=== PATIENT | male | born 1950 | race Caucasian/White ===

== ENCOUNTER 2023-11-24 11:49 | Inpatient (IN) | payer OTHER ==
[2023-11-24] MEDS ORDERED: ACETAMINOPHEN INJECTION 100 ML IVPB ONE ×2 (14:02→20:59)
[2023-11-24] MEDS: ACETAMINOPHEN 1000 MG/100 ML BAG IVPB ONE ×2 (14:05→21:18)
[2023-11-24 14:23] LABS: BASO % 0.7 % (0-2.0); EOS % 1.8 % (0-4.5); HEMATOCRIT 39.9 % (35.4-49); HEMOGLOBIN 12.6 GM/dL (11.7-16.9); LYMPH % 10.8 % (8-40); MCH 28.9 pg (25.7-33.7); MCHC 31.5 g/dl (32.0-35.9); MEAN CELL VOLUME 91.8 fl (80-96); MEAN PLT VOLUME 7.5 fl (7.5-11.1); MONO % 5.6 % (3.8-10.2); NEUT % 81.1 % (42.8-82.8); PLATELET COUNT 264 10^3/uL (134-434); RBC 4.35 M/mm3 (4.00-5.60); RDW 15.9 % (11.9-15.9); WHITE BLOOD COUNT 7.9 K/mm3 (4.0-10.0)
[2023-11-24 14:34] LABS: INR 1.29 (0.83-1.09); PROTHROMBIN TIME (PATIENT) 14.9 SEC (9.7-13.0)
[2023-11-24 14:36] LABS: ACTIVATED PTT 30.4 SECONDS (25.2-36.5)
[2023-11-24 14:40] LABS: POTASSIUM 3.7 mmol/L (3.5-5.1)
[2023-11-24 14:41] LABS: CALCIUM 8.4 mg/dL (8.5-10.1)
[2023-11-24 14:42] LABS: ALBUMIN 3.2 g/dl (3.4-5.0); BLOOD UREA NITROGEN 10.4 mg/dL (7-18)
[2023-11-24 14:45] LABS: CREATININE 1.3 mg/dL (0.55-1.3)
[2023-11-24 14:47] LABS: BILIRUBIN,TOTAL 0.8 mg/dL (0.2-1)
[2023-11-24 14:48] LABS: TOT PROT 6.8 g/dl (6.4-8.2)
[2023-11-24 14:51] LABS: LACTIC ACID 3.4 mmol/L (0.4-2.0)
[2023-11-24 15:18] LABS: ERYTHROCYTE SEDIMENTATION RATE 38 mm/hr (0-20)
[2023-11-24] MEDS: MEROPENEM 1 GM in DEXTROSE 5%-WATER 100 ML IVPB ONE (17:13)
[2023-11-24] MEDS: MEROPENEM 1 GM in DEXTROSE 5%-WATER 100 ML IVPB SCH (17:13)
[2023-11-24] MEDS ORDERED: PIPERACILLIN/TAZOB 3.375 GM 3.375 GM/50 ML BAG IVPB ONE (18:07)
[2023-11-24] MEDS: PIPERACILLIN/TAZOB 3.375 GM 3.375 GM in DEXTROSE 5%-WATER - 50 ML IVPB SCH (18:14)
[2023-11-24] MEDS: INSULIN ASPART SLIDING SCALE (NOVOLOG) 1 VIAL SQ SCH (18:14)
[2023-11-24] MEDS ORDERED: LABETALOL HCL 100 MG TABLET (FP) ONE (20:57)
[2023-11-24] MEDS ORDERED: hydrALAZINE HCL 50 MG TABLET (FP) ONE (20:58)
[2023-11-24] MEDS ORDERED: ATORVASTATIN CA 10 MG TABLET (FP) ONE (20:58)
[2023-11-24] MEDS ORDERED: traZODone HCL 50 MG TABLET (FP) ONE (20:58)
[2023-11-24] MEDS ORDERED: LABETALOL HCL 200 MG TABLET (FP) ONE (20:58)
[2023-11-24] MEDS ORDERED: HEPARIN NA (PORCINE) 5,000 UNITS/ML 1ML VIAL ONE (20:59)
[2023-11-24] MEDS ORDERED: AMPICILLIN NA/SULBACTAM NA 3 GM in DEXTROSE 5%-WATER 100 ML IVPB SCH (21:00)
[2023-11-24] MEDS: LABETALOL HCL 200 MG TABLET (FP) PO SCH (21:18)
[2023-11-24] MEDS: ATORVASTATIN CA 10 MG TABLET (FP) PO SCH (21:18)
[2023-11-24] MEDS: traZODone HCL 50 MG TABLET (FP) PO SCH (21:18)
[2023-11-24] MEDS: HEPARIN NA (PORCINE) 5,000 UNITS/ML 1ML VIAL SQ SCH (21:18)
[2023-11-24] MEDS: hydrALAZINE HCL 50 MG TABLET (FP) PO SCH (21:18)
[2023-11-25] MEDS ORDERED: PIPERACILLIN/TAZOB 3.375 GM 3.375 GM/50 ML BAG IVPB ONE ×3 (02:10→17:55)
[2023-11-25] MEDS: traMADol HCL 50 MG TABLET PO ONE (02:54)
[2023-11-25] MEDS ORDERED: hydrALAZINE HCL 50 MG TABLET (FP) ONE ×2 (05:49→15:33)
[2023-11-25] MEDS ORDERED: FUROSEMIDE 40 MG TABLET (FP) ONE (05:49)
[2023-11-25] MEDS: FUROSEMIDE 40 MG TABLET (FP) PO SCH (05:55)
[2023-11-25 06:26] LABS: BASO % 0.8 % (0-2.0); EOS % 2.6 % (0-4.5); HEMATOCRIT 39.1 % (35.4-49); HEMOGLOBIN 12.5 GM/dL (11.7-16.9); LYMPH % 16.4 % (8-40); MCH 29.1 pg (25.7-33.7); MCHC 31.8 g/dl (32.0-35.9); MEAN CELL VOLUME 91.5 fl (80-96); MEAN PLT VOLUME 7.5 fl (7.5-11.1); MONO % 8.9 % (3.8-10.2); NEUT % 71.3 % (42.8-82.8); PLATELET COUNT 256 10^3/uL (134-434); RBC 4.28 M/mm3 (4.00-5.60); RDW 15.4 % (11.9-15.9); WHITE BLOOD COUNT 7.3 K/mm3 (4.0-10.0)
[2023-11-25 06:44] LABS: CALCIUM 8.1 mg/dL (8.5-10.1); POTASSIUM 3.4 mmol/L (3.5-5.1)
[2023-11-25 06:46] LABS: BLOOD UREA NITROGEN 12.6 mg/dL (7-18)
[2023-11-25 06:48] LABS: CREATININE 1.2 mg/dL (0.55-1.3)
[2023-11-25] MEDS ORDERED: SACUBITRIL/VALSARTAN 49 MG-51 MG TABLET ONE (09:04)
[2023-11-25] MEDS: SACUBITRIL/VALSARTAN 49 MG-51 MG TABLET PO SCH (09:55)
[2023-11-25] MEDS: LABETALOL HCL 200 MG, LABETALOL HCL 100 MG PO SCH (09:55)
[2023-11-25] MEDS ORDERED: POTASSIUM CHLORIDE ORAL LIQUID 20 MEQ/15 ML ONE (10:08)
[2023-11-25] MEDS ORDERED: FUROSEMIDE 40 MG/4 ML INJECTABLE VIAL ONE ×2 (10:08→14:30)
[2023-11-25] MEDS: FUROSEMIDE 40 MG/4 ML INJECTABLE VIAL IVPUSH SCH (10:16)
[2023-11-25] MEDS: POTASSIUM CHLORIDE ORAL LIQUID 20 MEQ/15 ML PO ONE (10:16)
[2023-11-25] MEDS: ALBUTEROL SO4 2.5/IPRATROPIUM 0.5 INH SOL 3 ML VIAL.NEB. NEB PRN (13:40)
[2023-11-25] MEDS ORDERED: ATORVASTATIN CA 10 MG TABLET (FP) ONE (22:50)
[2023-11-25] MEDS ORDERED: LABETALOL HCL 100 MG TABLET (FP) ONE (22:50)
[2023-11-25] MEDS ORDERED: LABETALOL HCL 200 MG TABLET (FP) ONE (22:50)
[2023-11-25] MEDS ORDERED: HEPARIN NA (PORCINE) 5,000 UNITS/ML 1ML VIAL ONE (22:51)
[2023-11-25] MEDS ORDERED: traZODone HCL 50 MG TABLET (FP) ONE (22:51)
[2023-11-26] MEDS ORDERED: PIPERACILLIN/TAZOB 3.375 GM 3.375 GM/50 ML BAG IVPB ONE ×3 (03:01→16:42)
[2023-11-26] MEDS: ACETAMINOPHEN 325 MG TABLET (FP) PO PRN (03:50)
[2023-11-26] MEDS ORDERED: hydrALAZINE HCL 50 MG TABLET (FP) ONE ×3 (06:23→21:51)
[2023-11-26] MEDS ORDERED: FUROSEMIDE 40 MG TABLET (FP) ONE (06:23)
[2023-11-26 08:10] LABS: BASO % 0.8 % (0-2.0); EOS % 3.9 % (0-4.5); HEMATOCRIT 40.6 % (35.4-49); HEMOGLOBIN 12.7 GM/dL (11.7-16.9); LYMPH % 15.9 % (8-40); MCH 28.6 pg (25.7-33.7); MCHC 31.3 g/dl (32.0-35.9); MEAN CELL VOLUME 91.5 fl (80-96); MEAN PLT VOLUME 7.4 fl (7.5-11.1); MONO % 7.4 % (3.8-10.2); PLATELET COUNT 273 10^3/uL (134-434); RBC 4.44 M/mm3 (4.00-5.60); RDW 15.7 % (11.9-15.9); WHITE BLOOD COUNT 7.8 K/mm3 (4.0-10.0)
[2023-11-26 08:23] LABS: POTASSIUM 3.2 mmol/L (3.5-5.1)
[2023-11-26 08:26] LABS: CALCIUM 8.1 mg/dL (8.5-10.1)
[2023-11-26 08:27] LABS: BLOOD UREA NITROGEN 13.7 mg/dL (7-18)
[2023-11-26 08:29] LABS: CREATININE 1.1 mg/dL (0.55-1.3)
[2023-11-26] MEDS ORDERED: POTASSIUM CHLORIDE TABS 20 MEQ TABLET.ER (FP) PO ONE (09:59)
[2023-11-26] MEDS ORDERED: LABETALOL HCL 100 MG TABLET (FP) ONE ×2 (09:59→21:51)
[2023-11-26] MEDS ORDERED: LABETALOL HCL 200 MG TABLET (FP) ONE ×2 (10:00→21:51)
[2023-11-26] MEDS ORDERED: SACUBITRIL/VALSARTAN 49 MG-51 MG TABLET ONE (10:00)
[2023-11-26] MEDS ORDERED: HEPARIN NA (PORCINE) 5,000 UNITS/ML 1ML VIAL ONE (10:00)
[2023-11-26] MEDS: POTASSIUM CHLORIDE ORAL LIQUID 20 MEQ/15 ML PO ONE (10:08)
[2023-11-26] MEDS ORDERED: ENOXAPARIN NA (PORCINE) 40 MG/0.4 ML DISP.SYRIN SQ ONE (12:07)
[2023-11-26] MEDS: ENOXAPARIN NA (PORCINE) 40 MG/0.4 ML DISP.SYRIN SQ SCH (12:09)
[2023-11-26] MEDS ORDERED: ACETAMINOPHEN 325 MG TABLET (FP) ONE (13:57)
[2023-11-26] MEDS ORDERED: FUROSEMIDE 40 MG/4 ML INJECTABLE VIAL ONE (14:25)
[2023-11-26] MEDS ORDERED: INSULIN (NOVOLOG) ASPART 100 UNITS/ML 10ML VIAL ONE (16:43)
[2023-11-26] MEDS ORDERED: traZODone HCL 50 MG TABLET (FP) ONE (21:51)
[2023-11-26] MEDS ORDERED: ATORVASTATIN CA 10 MG TABLET (FP) ONE (21:51)
[2023-11-27] MEDS ORDERED: PIPERACILLIN/TAZOB 3.375 GM 3.375 GM/50 ML BAG IVPB ONE ×3 (00:51→18:05)
[2023-11-27] MEDS ORDERED: FUROSEMIDE 40 MG/4 ML INJECTABLE VIAL ONE (05:36)
[2023-11-27] MEDS ORDERED: hydrALAZINE HCL 50 MG TABLET (FP) ONE ×2 (05:36→22:14)
[2023-11-27] MEDS ORDERED: ACETAMINOPHEN 325 MG TABLET (FP) ONE ×3 (05:36→22:15)
[2023-11-27 07:31] LABS: EOS % 6.3 % (0-4.5); HEMATOCRIT 40.4 % (35.4-49); LYMPH % 13.1 % (8-40); MCH 29.5 pg (25.7-33.7); MCHC 32.2 g/dl (32.0-35.9); MEAN CELL VOLUME 91.5 fl (80-96); MEAN PLT VOLUME 7.6 fl (7.5-11.1); MONO % 7.2 % (3.8-10.2); NEUT % 72.4 % (42.8-82.8); PLATELET COUNT 294 10^3/uL (134-434); RBC 4.42 M/mm3 (4.00-5.60); RDW 16.1 % (11.9-15.9); WHITE BLOOD COUNT 8.2 K/mm3 (4.0-10.0)
[2023-11-27 08:04] LABS: POTASSIUM 3.7 mmol/L (3.5-5.1)
[2023-11-27 08:22] LABS: BLOOD UREA NITROGEN 20.9 mg/dL (7-18); CALCIUM 8.7 mg/dL (8.5-10.1); MAGNESIUM 2.2 mg/dL (1.8-2.4)
[2023-11-27 08:28] LABS: CREATININE 1.3 mg/dL (0.55-1.3)
[2023-11-27] MEDS ORDERED: LABETALOL HCL 200 MG TABLET (FP) ONE ×2 (09:42→22:13)
[2023-11-27] MEDS ORDERED: LABETALOL HCL 100 MG TABLET (FP) ONE ×2 (09:42→22:13)
[2023-11-27] MEDS: EMPAGLIFLOZIN (JARDIANCE) 25 MG TABLET PO SCH (09:56)
[2023-11-27] MEDS ORDERED: ATORVASTATIN CA 10 MG TABLET (FP) ONE (22:14)
[2023-11-27] MEDS ORDERED: traZODone HCL 50 MG TABLET (FP) ONE (22:14)
[2023-11-28] MEDS ORDERED: PIPERACILLIN/TAZOB 3.375 GM 3.375 GM/50 ML BAG IVPB ONE ×2 (02:04→09:03)
[2023-11-28] MEDS ORDERED: ACETAMINOPHEN 500 MG TABLET (FP) ONE (04:10)
[2023-11-28] MEDS ORDERED: FUROSEMIDE 40 MG/4 ML INJECTABLE VIAL ONE ×2 (06:10→06:44)
[2023-11-28] MEDS ORDERED: hydrALAZINE HCL 50 MG TABLET (FP) ONE ×2 (06:10→06:44)
[2023-11-28 07:35] LABS: BASO % 0.7 % (0-2.0); EOS % 3.5 % (0-4.5); HEMOGLOBIN 12.8 GM/dL (11.7-16.9); LYMPH % 10.8 % (8-40); MCH 29.5 pg (25.7-33.7); MCHC 32.8 g/dl (32.0-35.9); MEAN CELL VOLUME 90.1 fl (80-96); MEAN PLT VOLUME 7.6 fl (7.5-11.1); MONO % 8.6 % (3.8-10.2); NEUT % 76.4 % (42.8-82.8); PLATELET COUNT 293 10^3/uL (134-434); RBC 4.32 M/mm3 (4.00-5.60); RDW 16.1 % (11.9-15.9); WHITE BLOOD COUNT 8.4 K/mm3 (4.0-10.0)
[2023-11-28 07:40] LABS: POTASSIUM 3.6 mmol/L (3.5-5.1)
[2023-11-28 08:00] LABS: ALBUMIN 3.1 g/dl (3.4-5.0); BLOOD UREA NITROGEN 21.1 mg/dL (7-18); CALCIUM 8.6 mg/dL (8.5-10.1); MAGNESIUM 2.2 mg/dL (1.8-2.4)
[2023-11-28 08:04] LABS: CREATININE 1.3 mg/dL (0.55-1.3)
[2023-11-28 08:05] LABS: BILIRUBIN,TOTAL 0.8 mg/dL (0.2-1); TOT PROT 7.1 g/dl (6.4-8.2)
[2023-11-28 15:46] VITALS: BMI 49.1
[2023-11-28] MEDS ORDERED: INSULIN (NOVOLOG) ASPART 100 UNITS/ML 10ML VIAL ONE (17:13)
[2023-11-28] MEDS: ASPIRIN COATED 81 MG TABLET.EC PO SCH (17:19)
[2023-11-29] MEDS: ACETAMINOPHEN 1000 MG/100 ML BAG IVPB ONE (02:23)
[2023-11-29 09:19] LABS: BASO % 0.7 % (0-2.0); EOS % 4.2 % (0-4.5); HEMATOCRIT 39.2 % (35.4-49); LYMPH % 11.5 % (8-40); MCH 29.9 pg (25.7-33.7); MCHC 33.2 g/dl (32.0-35.9); MEAN CELL VOLUME 89.9 fl (80-96); MEAN PLT VOLUME 7.5 fl (7.5-11.1); MONO % 8.5 % (3.8-10.2); NEUT % 75.1 % (42.8-82.8); PLATELET COUNT 275 10^3/uL (134-434); RBC 4.36 M/mm3 (4.00-5.60); RDW 16.2 % (11.9-15.9); WHITE BLOOD COUNT 7.3 K/mm3 (4.0-10.0)
[2023-11-29 09:24] LABS: POTASSIUM 3.4 mmol/L (3.5-5.1)
[2023-11-29 09:31] LABS: BLOOD UREA NITROGEN 18.7 mg/dL (7-18)
[2023-11-29 09:32] LABS: ALBUMIN 3.3 g/dl (3.4-5.0); CALCIUM 8.6 mg/dL (8.5-10.1)
[2023-11-29 09:33] LABS: MAGNESIUM 2.1 mg/dL (1.8-2.4)
[2023-11-29 09:34] LABS: CREATININE 1.2 mg/dL (0.55-1.3)
[2023-11-29 09:36] LABS: TOT PROT 7.2 g/dl (6.4-8.2)
[2023-11-29] MEDS ORDERED: INSULIN (NOVOLOG) ASPART 100 UNITS/ML 10ML VIAL ONE (12:29)
[2023-11-29] MEDS: POTASSIUM CHLORIDE TABS 20 MEQ TABLET.ER (FP) PO ONE (12:35)
[2023-11-29] MEDS: MINERAL OIL/PET HY-PHL TOPICAL OINTMENT 454 GM JAR TP SCH (21:35)
[2023-11-30] MEDS ORDERED: INSULIN (NOVOLOG) ASPART 100 UNITS/ML 10ML VIAL ONE (05:53)
[2023-11-30 09:05] LABS: BASO % 1.2 % (0-2.0); EOS % 2.4 % (0-4.5); HEMATOCRIT 38.6 % (35.4-49); HEMOGLOBIN 12.6 GM/dL (11.7-16.9); LYMPH % 14.9 % (8-40); MCH 29.7 pg (25.7-33.7); MCHC 32.6 g/dl (32.0-35.9); MEAN PLT VOLUME 7.8 fl (7.5-11.1); MONO % 9.7 % (3.8-10.2); NEUT % 71.8 % (42.8-82.8); PLATELET COUNT 268 10^3/uL (134-434); RBC 4.24 M/mm3 (4.00-5.60); RDW 16.3 % (11.9-15.9); WHITE BLOOD COUNT 7.1 K/mm3 (4.0-10.0)
[2023-11-30 09:21] LABS: POTASSIUM 3.8 mmol/L (3.5-5.1)
[2023-11-30 09:39] LABS: ALBUMIN 3.3 g/dl (3.4-5.0); CALCIUM 8.6 mg/dL (8.5-10.1)
[2023-11-30 09:40] LABS: BLOOD UREA NITROGEN 16.9 mg/dL (7-18); MAGNESIUM 2.2 mg/dL (1.8-2.4)
[2023-11-30 09:43] LABS: CREATININE 1.2 mg/dL (0.55-1.3)
[2023-11-30 09:44] LABS: BILIRUBIN,TOTAL 1.1 mg/dL (0.2-1)
[2023-11-30 09:45] LABS: TOT PROT 7.2 g/dl (6.4-8.2)
[2023-11-30] MEDS: ACETAMINOPHEN 500 MG TABLET (FP) PO PRN (14:27)
[2023-11-30] MEDS: FUROSEMIDE 40 MG TABLET (FP) PO SCH (14:27)
[2023-11-30] MEDS: NYSTATIN 100,000 UNIT/GM TOPICAL CREAM 15 GM TUBE TP SCH (21:52)
[2023-12-01 09:53] LABS: BASO % 0.9 % (0-2.0); EOS % 2.3 % (0-4.5); HEMATOCRIT 39.1 % (35.4-49); HEMOGLOBIN 12.1 GM/dL (11.7-16.9); LYMPH % 13.5 % (8-40); MCH 28.2 pg (25.7-33.7); MCHC 30.9 g/dl (32.0-35.9); MEAN CELL VOLUME 91.3 fl (80-96); MEAN PLT VOLUME 7.7 fl (7.5-11.1); MONO % 6.7 % (3.8-10.2); NEUT % 76.6 % (42.8-82.8); PLATELET COUNT 256 10^3/uL (134-434); RBC 4.28 M/mm3 (4.00-5.60); RDW 16.4 % (11.9-15.9); WHITE BLOOD COUNT 7.4 K/mm3 (4.0-10.0)
[2023-12-01 10:16] LABS: POTASSIUM 3.7 mmol/L (3.5-5.1)
[2023-12-01 10:23] LABS: BLOOD UREA NITROGEN 17.7 mg/dL (7-18); CALCIUM 8.9 mg/dL (8.5-10.1); MAGNESIUM 2.2 mg/dL (1.8-2.4)
[2023-12-01 10:26] LABS: CREATININE 1.2 mg/dL (0.55-1.3)
[2023-12-01 10:28] LABS: BILIRUBIN,TOTAL 0.9 mg/dL (0.2-1); TOT PROT 7.3 g/dl (6.4-8.2)
[2023-12-01] MEDS ORDERED: PIPERACILLIN/TAZOBACTAM 3.375 GM VIAL IVPB ONE (16:46)
[2023-12-01] MEDS ORDERED: INSULIN (NOVOLOG) ASPART 100 UNITS/ML 10ML VIAL ONE (21:10)
[2023-12-02 09:19] LABS: BASO % 1.2 % (0-2.0); EOS % 3.4 % (0-4.5); HEMATOCRIT 38.3 % (35.4-49); HEMOGLOBIN 12.2 GM/dL (11.7-16.9); LYMPH % 15.7 % (8-40); MCH 29.1 pg (25.7-33.7); MONO % 7.3 % (3.8-10.2); NEUT % 72.4 % (42.8-82.8); PLATELET COUNT 262 10^3/uL (134-434); RBC 4.21 M/mm3 (4.00-5.60); RDW 16.4 % (11.9-15.9)
[2023-12-02 09:45] LABS: POTASSIUM 3.6 mmol/L (3.5-5.1)
[2023-12-02 09:56] LABS: BLOOD UREA NITROGEN 18.5 mg/dL (7-18); CALCIUM 8.9 mg/dL (8.5-10.1)
[2023-12-02 09:57] LABS: MAGNESIUM 2.1 mg/dL (1.8-2.4)
[2023-12-02 09:59] LABS: CREATININE 1.1 mg/dL (0.55-1.3)
[2023-12-02 10:00] LABS: BILIRUBIN,TOTAL 0.8 mg/dL (0.2-1)
[2023-12-02] MEDS: GABAPENTIN 100 MG CAPSULE PO SCH (10:00)
[2023-12-02 10:01] LABS: TOT PROT 7.2 g/dl (6.4-8.2)
[2023-12-02] MEDS: ACETAMINOPHEN 1000 MG/100 ML BAG IVPB SCH ×3 (10:15→16:04)
[2023-12-02] MEDS: KETOROLAC TROMETHAMINE 30 MG/1 ML VIAL IVPUSH PRN (12:02)
[2023-12-02] MEDS ORDERED: ACETAMINOPHEN 1000 MG/100 ML BAG IVPB SCH (15:00)
[2023-12-03] MEDS ORDERED: INSULIN (NOVOLOG) ASPART 100 UNITS/ML 10ML VIAL ONE (06:29)
[2023-12-03 09:02] LABS: BASO % 1.2 % (0-2.0); EOS % 4.5 % (0-4.5); HEMOGLOBIN 12.5 GM/dL (11.7-16.9); LYMPH % 15.6 % (8-40); MCH 28.5 pg (25.7-33.7); MCHC 31.2 g/dl (32.0-35.9); MEAN CELL VOLUME 91.5 fl (80-96); MONO % 7.3 % (3.8-10.2); NEUT % 71.4 % (42.8-82.8); PLATELET COUNT 237 10^3/uL (134-434); RBC 4.37 M/mm3 (4.00-5.60); WHITE BLOOD COUNT 6.2 K/mm3 (4.0-10.0)
[2023-12-03 09:22] LABS: POTASSIUM 4.3 mmol/L (3.5-5.1)
[2023-12-03 09:27] LABS: CALCIUM 8.4 mg/dL (8.5-10.1)
[2023-12-03 09:28] LABS: BLOOD UREA NITROGEN 18.1 mg/dL (7-18); MAGNESIUM 2.3 mg/dL (1.8-2.4)
[2023-12-03 09:31] LABS: CREATININE 1.1 mg/dL (0.55-1.3)
[2023-12-03 09:33] LABS: BILIRUBIN,TOTAL 0.6 mg/dL (0.2-1)
[2023-12-03] MEDS: INSULIN ASPART SLIDING SCALE (NOVOLOG) 1 VIAL SQ SCH (11:53)
[2023-12-04] MEDS ORDERED: PIPERACILLIN/TAZOBACTAM 3.375 GM VIAL IVPB ONE (02:27)
[2023-12-04] MEDS ORDERED: INSULIN (NOVOLOG) ASPART 100 UNITS/ML 10ML VIAL ONE ×3 (14:24→21:13)
[2023-12-04] MEDS: AMOX TR/POT CLAV 875MG/125MG TABLETS (FP) PO SCH (17:01)
[2023-12-05] MEDS: levoFLOXacin 750 MG TABLET PO SCH (06:28)
[2023-12-05] MEDS: TAMSULOSIN HCL 0.4 MG CAP PO SCH (12:50)
[2023-12-05] MEDS: oxyCODONE HCL 5 MG TABLET PO PRN (16:26)
[2023-12-06 08:54] VITALS: BP 119/70; PULSE 82; RESP 18; TEMP 98.4
== END 2023-12-06 11:32 | DRG 602 ==
LOC: JER 11:49 → JERBED 13:15 → J7W 11-28 15:00 → J8W 11-29 01:01
PROVIDERS: ADMIT Internal Medicine; ATTEND Nurse Practitioner Family
DX: L03.115 Cellulitis of right lower limb (principal); I50.33 Acute on chronic diastolic (congestive) heart failure; Z68.42 Body mass index [BMI] 45.0-49.9, adult; L97.828 Non-pressure chronic ulcer of other part of left lower leg with other specified severity; L97.818 Non-pressure chronic ulcer of other part of right lower leg with other specified severity; L03.116 Cellulitis of left lower limb; E11.622 Type 2 diabetes mellitus with other skin ulcer; B96.5 Pseudomonas (aeruginosa) (mallei) (pseudomallei) as the cause of diseases classified elsewhere; B95.2 Enterococcus as the cause of diseases classified elsewhere; E66.01 Morbid (severe) obesity due to excess calories; I89.0 Lymphedema, not elsewhere classified; L08.9 Local infection of the skin and subcutaneous tissue, unspecified; B96.89 Other specified bacterial agents as the cause of diseases classified elsewhere; E87.6 Hypokalemia; B96.20 Unspecified Escherichia coli [E. coli] as the cause of diseases classified elsewhere; I87.8 Other specified disorders of veins; E78.5 Hyperlipidemia, unspecified; I48.91 Unspecified atrial fibrillation
CPT/HCPCS: 29581-LT; 29581-RT; 36415; 71045-TC-FY; 73590-TC-LT-FY; 73590-TC-RT-FY; 80048; 80053; 82962; 83036; 83605; 83735; 83880; 85025; 85610; 85651; 85730; 86140; 87040; 87070; 87081; 87186; 87205; 87635; 93005; 93010; 93306-TC; 94761; 97116-GP; 97162-GP; 99285-25; G0463-25; J0131; J1644

== ENCOUNTER 2023-12-28 11:37 | Inpatient (IN) | payer OTHER ==
[2023-12-28] MEDS: LACTATED RINGERS SOLUTION 1000 ML INFUS.BAG IV ONE (11:50)
[2023-12-28] MEDS ORDERED: PIPERACILLIN/TAZOB 4.5 GM 4.5 GM/100 ML BAG IVPB ONE (11:57)
[2023-12-28] MEDS ORDERED: methylPREDNISolone NA SUCC 125 MG/2 ML VIAL ONE (11:58)
[2023-12-28] MEDS ORDERED: VANCOMYCIN 1 GRAM (PRE-DOCKED) 1,000 MG/250 ML BAG IVPB ONE (11:58)
[2023-12-28] MEDS ORDERED: MAGNESIUM SULFATE IN WATER 2 GM/50 ML IVPB IVPB ONE (11:59)
[2023-12-28] MEDS ORDERED: ALBUTEROL SO4 2.5/IPRATROPIUM 0.5 INH SOL 3 ML VIAL.NEB. NEB SCH ×2 (12:00→16:00)
[2023-12-28 12:13] LABS: BASO % 0.2 % (0-2.0); EOS % 0.1 % (0-4.5); HEMATOCRIT 42.7 % (35.4-49); LYMPH % 6.1 % (8-40); MCH 28.9 pg (25.7-33.7); MCHC 30.5 g/dl (32.0-35.9); MEAN CELL VOLUME 94.8 fl (80-96); MEAN PLT VOLUME 8.2 fl (7.5-11.1); NEUT % 85.6 % (42.8-82.8); PLATELET COUNT 154 10^3/uL (134-434); RDW 17.8 % (11.9-15.9); WHITE BLOOD COUNT 6.3 K/mm3 (4.0-10.0)
[2023-12-28] MEDS: methylPREDNISolone NA SUCC 125 MG/2 ML VIAL IVPUSH ONE ×2 (12:16→14:34)
[2023-12-28] MEDS: PIPERACILLIN/TAZOB 4.5 GM 4.5 GM in DEXTROSE 5%-WATER 100 ML IVPB ONE (12:17)
[2023-12-28 12:23] LABS: INR 1.1 (0.83-1.09); PROTHROMBIN TIME (PATIENT) 12.7 SEC (9.7-13.0)
[2023-12-28 12:25] LABS: VENOUS BASE EXCESS 15.6 mmol/L (-2-2); VENOUS O2 SATURATION 45.3 % (70-80)
[2023-12-28 12:25] LABS: ACTIVATED PTT 32.7 SECONDS (25.2-36.5)
[2023-12-28 12:27] LABS: VENOUS PH 7.192 (7.310-7.410)
[2023-12-28] MEDS: VANCOMYCIN 1,000 MG in DEXTROSE 5%-WATER - 250 ML IVPB ONE (12:35)
[2023-12-28] MEDS: MAGNESIUM SULF 50% (8.12 MEQ/2 ML-1 GM VIAL) IVPB ONE (12:35)
[2023-12-28] MEDS ORDERED: ALBUTEROL SO4 2.5/IPRATROPIUM 0.5 INH SOL 3 ML VIAL.NEB. NEB ONE (12:41)
[2023-12-28 12:44] LABS: CHLORIDE 97 mmol/L (98-107); POTASSIUM 4.9 mmol/L (3.5-5.1); SODIUM 142 mmol/L (136-145)
[2023-12-28 12:47] LABS: ALBUMIN 3.1 g/dl (3.4-5.0); BLOOD UREA NITROGEN 12.7 mg/dL (7-18); GLUCOSE,RANDOM 170 mg/dL (74-106)
[2023-12-28 12:47] LABS: EPI CELLS 17 /uL (0-25.1); HYALINE CASTS 3 /uL (0-3.1); PH,URINE 5.5 (5.0-8.0); URINE APPEARANCE CLEAR; URINE BACTERIA 6 /uL (0-1359); URINE BILIRUBIN NEGATIVE (NEGATIVE); URINE COLOR YELLOW; URINE GLUCOSE (UA) 3+ (NEGATIVE); URINE KETONE NEGATIVE (NEGATIVE); URINE LEUK ESTERASE NEGATIVE (NEGATIVE); URINE NITRITE NEGATIVE (NEGATIVE); URINE PROTEIN 1+ (NEGATIVE); URINE RBC 13 /uL (0-23.9); URINE WBC 19 /uL (0-25.8)
[2023-12-28 12:50] LABS: CREATININE 0.9 mg/dL (0.55-1.3); SGOT/AST 14 U/L (15-37); SGPT/ALT 19 U/L (13-61)
[2023-12-28 12:51] LABS: BILIRUBIN,TOTAL 0.7 mg/dL (0.2-1); TOT PROT 7.2 g/dl (6.4-8.2)
[2023-12-28 12:52] LABS: ALK PHOS 68 U/L (45-117)
[2023-12-28 12:57] LABS: ANION GAP 1 mmol/L (4-13); CO2 > 45 mmol/L (21-32)
[2023-12-28] MEDS ORDERED: PROPOFOL 1,000,000 MCG/100 ML VIAL ONE (13:10)
[2023-12-28] MEDS: PROPOFOL 200 MG/20 ML VIAL IVPUSH ONE (13:10)
[2023-12-28] MEDS: PROPOFOL 1,000,000 MCG/100 ML VIAL IVPB SCH (14:14)
[2023-12-28] MEDS ORDERED: FENTANYL NS IVPB 500 MCG/100 ML BAG IVPB SCH ×2 (14:30)
[2023-12-28] MEDS: LACTATED RINGERS SOLUTION 1,000 ML/1,000 ML INFUS.BAG IV SCH (14:41)
[2023-12-28] MEDS: PIPERACILLIN/TAZOB 3.375 GM 3.375 GM in DEXTROSE 5%-WATER - 50 ML IVPB SCH (14:42)
[2023-12-28] MEDS: FENTANYL NS IVPB 500 MCG/100 ML BAG IVPB SCH (14:43)
[2023-12-28] MEDS ORDERED: ALBUTEROL SO4 2.5/IPRATROPIUM 0.5 INH SOL 3 ML VIAL.NEB. NEB PRN (14:59)
[2023-12-28] MEDS: ACETYLCYSTEINE 20% 200MG/ML 4 ML VIAL *FOR ORAL / INH USE ONLY IH ONE (15:45)
[2023-12-28] MEDS: ALBUTEROL SO4 0.083% IH SOL 2.5 MG/3 ML VIAL.NEB. NEB ONE (15:46)
[2023-12-28] MEDS: hydrALAZINE HCL 20 MG/ML VIAL IVPUSH ONE (16:15)
[2023-12-28] MEDS ORDERED: hydrALAZINE HCL 20 MG/ML VIAL ONE (16:21)
[2023-12-28] MEDS ORDERED: INSULIN (NOVOLOG) ASPART 100 UNITS/ML 10ML VIAL ONE (17:40)
[2023-12-28] MEDS: INSULIN ASPART SLIDING SCALE (NOVOLOG) 1 VIAL SQ SCH (17:41)
[2023-12-28 19:01] LABS: ARTERIAL BLD GAS O2 SATURATION 94.6 % (95-98); ARTERIAL BLOOD GAS PO2 73.3 mmHg (80-100); ARTERIAL BLOOD GAS pH 7.415 (7.350-7.450)
[2023-12-28] MEDS: LABETALOL HCL 100 MG TABLET (FP) PO SCH (22:17)
[2023-12-28] MEDS: ENOXAPARIN NA (PORCINE) 40 MG/0.4 ML DISP.SYRIN SQ SCH (22:18)
[2023-12-28] MEDS: ATORVASTATIN CA 10 MG TABLET (FP) PO SCH (22:18)
[2023-12-28] MEDS: hydrALAZINE HCL 50 MG TABLET (FP) PO SCH (22:18)
[2023-12-28] MEDS: CHLORHEXIDINE GLUCONATE 4% CLEANSER FOR DECOLONIZATION TP SCH (22:19)
[2023-12-28] MEDS: MUPIROCIN 2% TOPICAL OINTMENT FOR DECOLONIZATION NS SCH (22:19)
[2023-12-29] MEDS: FUROSEMIDE 40 MG TABLET (FP) PO SCH (05:10)
[2023-12-29 06:40] LABS: ARTERIAL BLD GAS O2 SATURATION 95.9 % (95-98); ARTERIAL BLOOD GAS BASE EXCESS 12.2 mmol/L (-2-2); ARTERIAL BLOOD GAS PO2 77.4 mmHg (80-100)
[2023-12-29 06:55] LABS: ALLENS TEST POSITIVE
[2023-12-29 06:56] LABS: VENT MODE A/C; VENT RATE 20
[2023-12-29 07:03] LABS: BASO % 0.1 % (0-2.0); HEMATOCRIT 38.9 % (35.4-49); HEMOGLOBIN 12.2 GM/dL (11.7-16.9); LYMPH % 6.2 % (8-40); MCH 28.4 pg (25.7-33.7); MCHC 31.3 g/dl (32.0-35.9); MEAN CELL VOLUME 90.6 fl (80-96); MEAN PLT VOLUME 8.7 fl (7.5-11.1); MONO % 8.2 % (3.8-10.2); NEUT % 85.5 % (42.8-82.8); PLATELET COUNT 130 10^3/uL (134-434); RBC 4.29 M/mm3 (4.00-5.60); RDW 17.3 % (11.9-15.9)
[2023-12-29 07:23] LABS: POTASSIUM 3.6 mmol/L (3.5-5.1)
[2023-12-29 07:27] LABS: CALCIUM 8.5 mg/dL (8.5-10.1)
[2023-12-29 07:28] LABS: ALBUMIN 2.7 g/dl (3.4-5.0); BLOOD UREA NITROGEN 16.8 mg/dL (7-18); MAGNESIUM 2.3 mg/dL (1.8-2.4)
[2023-12-29 07:32] LABS: BILIRUBIN,TOTAL 0.9 mg/dL (0.2-1); TOT PROT 6.1 g/dl (6.4-8.2)
[2023-12-29 07:37] LABS: CREATININE 0.8 mg/dL (0.55-1.3); PHOSPHOROUS 1.6 mg/dL (2.5-4.9)
[2023-12-29] MEDS: NAPH,MB-DB/K PH,MBDB POWDER PACKET NGT ONE (09:20)
[2023-12-29] MEDS: TAMSULOSIN HCL 0.4 MG CAP PO SCH (09:30)
[2023-12-29] MEDS: ASPIRIN COATED 81 MG TABLET.EC PO SCH (10:20)
[2023-12-29] MEDS: PANTOPRAZOLE SODIUM 40 MG VIAL IVPUSH SCH (10:21)
[2023-12-29] MEDS: SACUBITRIL/VALSARTAN 49 MG-51 MG TABLET PO SCH (10:46)
[2023-12-29] MEDS: ALBUTEROL SO4 0.083% IH SOL 2.5 MG/3 ML VIAL.NEB. NEB SCH (12:04)
[2023-12-29] MEDS: ACETYLCYSTEINE 20% 200MG/ML 4 ML VIAL *FOR ORAL / INH USE ONLY NEB SCH (12:04)
[2023-12-29] MEDS: methylPREDNISolone NA SUCC 125 MG/2 ML VIAL IVPUSH SCH (12:15)
[2023-12-29 15:36] LABS: COCAINE, UR NEGATIVE (NEGATIVE); OPIATES, URI NEGATIVE (NEGATIVE); PHENCYCLIDINE,URINE NEGATIVE (NEGATIVE); URINE BARBITURATES NEGATIVE (NEGATIVE); URINE BENZODIAZEPINES NEGATIVE (NEGATIVE)
[2023-12-29 15:37] LABS: METHADONE, UR NEGATIVE (NEGATIVE)
[2023-12-29 15:38] LABS: URINE AMPHETAMINES NEGATIVE (NEGATIVE)
[2023-12-29] MEDS: PIPERACILLIN/TAZOB 3.375 GM 3.375 GM in DEXTROSE 5%-WATER - 50 ML IVPB SCH (16:30)
[2023-12-29] MEDS: ACETAMINOPHEN 325 MG TABLET (FP) PO PRN (16:31)
[2023-12-29] MEDS ORDERED: INSULIN (NOVOLOG) ASPART 100 UNITS/ML 10ML VIAL ONE (21:01)
[2023-12-30 07:19] LABS: HEMATOCRIT 40.2 % (35.4-49); HEMOGLOBIN 12.5 GM/dL (11.7-16.9); MEAN CELL VOLUME 90.1 fl (80-96); MEAN PLT VOLUME 8.9 fl (7.5-11.1); PLATELET COUNT 152 10^3/uL (134-434); RBC 4.46 M/mm3 (4.00-5.60); RDW 17.9 % (11.9-15.9); WHITE BLOOD COUNT 9.7 K/mm3 (4.0-10.0)
[2023-12-30 07:38] LABS: POTASSIUM 3.2 mmol/L (3.5-5.1)
[2023-12-30 07:40] LABS: CALCIUM 8.7 mg/dL (8.5-10.1)
[2023-12-30 07:41] LABS: ALBUMIN 2.7 g/dl (3.4-5.0); BLOOD UREA NITROGEN 27.8 mg/dL (7-18); MAGNESIUM 2.5 mg/dL (1.8-2.4)
[2023-12-30 07:44] LABS: PHOSPHOROUS 3.6 mg/dL (2.5-4.9)
[2023-12-30 07:45] LABS: BILIRUBIN,TOTAL 0.7 mg/dL (0.2-1); TOT PROT 6.5 g/dl (6.4-8.2)
[2023-12-30] MEDS: PIPERACILLIN/TAZOB 3.375 GM 3.375 GM in DEXTROSE 5%-WATER - 50 ML IVPB SCH (12:51)
[2023-12-30] MEDS: KCL 10 MEQ IVPB 10 MEQ/100 ML INFUS.BAG IVPB SCH (13:24)
[2023-12-30] MEDS: POTASSIUM CHLORIDE ORAL LIQUID 20 MEQ/15 ML NGT ONE (13:24)
[2023-12-30] MEDS ORDERED: INSULIN (NOVOLOG) ASPART 100 UNITS/ML 10ML VIAL ONE (22:15)
[2023-12-31 06:47] LABS: ARTERIAL BLD GAS O2 SATURATION 97.1 % (95-98); ARTERIAL BLOOD GAS BASE EXCESS 10.9 mmol/L (-2-2); ARTERIAL BLOOD GAS PO2 93.4 mmHg (80-100); ARTERIAL BLOOD GAS pH 7.425 (7.350-7.450)
[2023-12-31 07:11] LABS: ALLENS TEST POSITIVE; VENT MODE A/C; VENT RATE 16
[2023-12-31 08:32] LABS: POTASSIUM 3.7 mmol/L (3.5-5.1)
[2023-12-31 08:33] LABS: HEMATOCRIT 39.8 % (35.4-49); HEMOGLOBIN 12.5 GM/dL (11.7-16.9); MCHC 31.3 g/dl (32.0-35.9); MEAN CELL VOLUME 89.6 fl (80-96); MEAN PLT VOLUME 8.8 fl (7.5-11.1); PLATELET COUNT 159 10^3/uL (134-434); RBC 4.45 M/mm3 (4.00-5.60); RDW 17.9 % (11.9-15.9); WHITE BLOOD COUNT 9.2 K/mm3 (4.0-10.0)
[2023-12-31 08:35] LABS: BLOOD UREA NITROGEN 40.1 mg/dL (7-18); CALCIUM 8.4 mg/dL (8.5-10.1)
[2023-12-31 08:36] LABS: MAGNESIUM 2.7 mg/dL (1.8-2.4)
[2023-12-31 08:38] LABS: PHOSPHOROUS 3.8 mg/dL (2.5-4.9)
[2023-12-31 08:40] LABS: ACTIVATED PTT 25.9 SECONDS (25.2-36.5)
[2023-12-31 08:42] LABS: INR 1.1 (0.83-1.09); PROTHROMBIN TIME (PATIENT) 12.8 SEC (9.7-13.0)
[2023-12-31] MEDS: SACUBITRIL/VALSARTAN 49 MG-51 MG TABLET PEG SCH (10:09)
[2023-12-31] MEDS: LABETALOL HCL 100 MG TABLET (FP) NGT SCH (10:13)
[2023-12-31] MEDS: ASPIRIN 81 MG CHEWABLE TABLETS NGT SCH (10:13)
[2023-12-31 11:06] LABS: ANISOCYTOSIS 0; HELMET CELLS 0; HOWELL-JOLLY BODIES 0; MACROCYTOSIS 0; OVALOCYTE 0; ROULEAU 0; SICKELED CELLS 0; TARGET CELLS 0; TEAR DROP CELLS 0; TOXIC GRANULATION 0
[2023-12-31] MEDS: hydrALAZINE HCL 50 MG TABLET (FP) NGT SCH (14:16)
[2023-12-31] MEDS: ATORVASTATIN CA 10 MG TABLET (FP) NGT SCH (21:30)
[2024-01-01 07:41] LABS: HEMATOCRIT 38.7 % (35.4-49); HEMOGLOBIN 12.7 GM/dL (11.7-16.9); LYMPH % 3.9 % (8-40); MCH 29.3 pg (25.7-33.7); MCHC 32.9 g/dl (32.0-35.9); MEAN CELL VOLUME 88.9 fl (80-96); MEAN PLT VOLUME 8.6 fl (7.5-11.1); MONO % 2.7 % (3.8-10.2); NEUT % 93.4 % (42.8-82.8); PLATELET COUNT 152 10^3/uL (134-434); RBC 4.35 M/mm3 (4.00-5.60); RDW 17.5 % (11.9-15.9); WHITE BLOOD COUNT 6.7 K/mm3 (4.0-10.0)
[2024-01-01 08:06] LABS: POTASSIUM 3.7 mmol/L (3.5-5.1)
[2024-01-01 08:08] LABS: ALBUMIN 2.6 g/dl (3.4-5.0); BLOOD UREA NITROGEN 47.5 mg/dL (7-18); CALCIUM 8.5 mg/dL (8.5-10.1); MAGNESIUM 2.7 mg/dL (1.8-2.4)
[2024-01-01 08:11] LABS: CREATININE 1.1 mg/dL (0.55-1.3)
[2024-01-01 08:13] LABS: BILIRUBIN,TOTAL 0.6 mg/dL (0.2-1); TOT PROT 6.1 g/dl (6.4-8.2)
[2024-01-01] MEDS ORDERED: methylPREDNISolone NA SUCC 125 MG/2 ML VIAL IVPUSH SCH (10:00)
[2024-01-01 11:04] LABS: ANISOCYTOSIS 0; HELMET CELLS 0; HOWELL-JOLLY BODIES 0; MACROCYTOSIS 0; OVALOCYTE 0; ROULEAU 0; SICKELED CELLS 0; TARGET CELLS 0; TEAR DROP CELLS 0; TOXIC GRANULATION 0
[2024-01-01] MEDS ORDERED: methylPREDNISolone NA SUCC 40 MG/1 ML VIAL IVPUSH SCH (22:00)
[2024-01-02 07:29] LABS: HEMATOCRIT 41.5 % (35.4-49); HEMOGLOBIN 13.2 GM/dL (11.7-16.9); MCH 28.2 pg (25.7-33.7); MCHC 31.8 g/dl (32.0-35.9); MEAN CELL VOLUME 88.8 fl (80-96); MEAN PLT VOLUME 8.5 fl (7.5-11.1); PLATELET COUNT 155 10^3/uL (134-434); RBC 4.67 M/mm3 (4.00-5.60); RDW 17.2 % (11.9-15.9); WHITE BLOOD COUNT 6.9 K/mm3 (4.0-10.0)
[2024-01-02 07:59] LABS: POTASSIUM 3.3 mmol/L (3.5-5.1)
[2024-01-02 08:02] LABS: CALCIUM 8.6 mg/dL (8.5-10.1)
[2024-01-02 08:03] LABS: ALBUMIN 2.5 g/dl (3.4-5.0); BLOOD UREA NITROGEN 46.3 mg/dL (7-18); MAGNESIUM 2.7 mg/dL (1.8-2.4)
[2024-01-02 08:06] LABS: PHOSPHOROUS 2.3 mg/dL (2.5-4.9)
[2024-01-02 08:07] LABS: BILIRUBIN,TOTAL 0.8 mg/dL (0.2-1)
[2024-01-02] MEDS ORDERED: LACTULOSE 20 GM/30 ML UDC (FOR ORAL USE ONLY) PO PRN (08:21)
[2024-01-02] MEDS: POTASSIUM CHLORIDE ORAL LIQUID 20 MEQ/15 ML PO ONE (09:04)
[2024-01-02] MEDS: LACTULOSE 20 GM/30 ML UDC (FOR ORAL USE ONLY) PO SCH (09:04)
[2024-01-02] MEDS: NAPH,MB-DB/K PH,MBDB POWDER PACKET PO ONE (09:09)
[2024-01-02] MEDS: SODIUM CHLORIDE 0.45% 1,000 ML IV SCH (12:20)
[2024-01-02 14:14] LABS: ARTERIAL BLD GAS O2 SATURATION 96.9 % (95-98); ARTERIAL BLOOD GAS BASE EXCESS 11.4 mmol/L (-2-2); ARTERIAL BLOOD GAS PO2 88.4 mmHg (80-100)
[2024-01-02 14:15] LABS: ALLENS TEST POSITIVE
[2024-01-02] MEDS: ACETAMINOPHEN 1000 MG/100 ML BAG IVPB PRN (14:50)
[2024-01-02] MEDS: IBUPROFEN 800 MG/8 ML IJ IVPB ONE (18:11)
[2024-01-02] MEDS ORDERED: LABETALOL HCL 5 MG/1 ML (100MG/20 ML VIAL) IVPUSH PRN (19:18)
[2024-01-02] MEDS: INSULIN ASPART SLIDING SCALE (NOVOLOG) 1 VIAL SQ SCH (21:18)
[2024-01-03 07:22] LABS: HEMATOCRIT 41.7 % (35.4-49); MCHC 31.1 g/dl (32.0-35.9); MEAN PLT VOLUME 8.3 fl (7.5-11.1); PLATELET COUNT 130 10^3/uL (134-434); RBC 4.64 M/mm3 (4.00-5.60); RDW 17.3 % (11.9-15.9); WHITE BLOOD COUNT 6.6 K/mm3 (4.0-10.0)
[2024-01-03 07:44] LABS: ALBUMIN 2.5 g/dl (3.4-5.0); BLOOD UREA NITROGEN 35.3 mg/dL (7-18); CALCIUM 8.3 mg/dL (8.5-10.1)
[2024-01-03 07:45] LABS: MAGNESIUM 2.2 mg/dL (1.8-2.4)
[2024-01-03 07:47] LABS: CREATININE 0.8 mg/dL (0.55-1.3); PHOSPHOROUS 2.7 mg/dL (2.5-4.9)
[2024-01-03 07:49] LABS: BILIRUBIN,TOTAL 1.3 mg/dL (0.2-1); TOT PROT 5.8 g/dl (6.4-8.2)
[2024-01-03] MEDS ORDERED: SODIUM CHLORIDE 0.45% 500 ML IV SCH (08:30)
[2024-01-03] MEDS: FUROSEMIDE 40 MG/4 ML INJECTABLE VIAL IVPUSH ONE (08:48)
[2024-01-03] MEDS: KCL 10 MEQ IVPB 10 MEQ/100 ML INFUS.BAG IVPB SCH (08:48)
[2024-01-03] MEDS: DEXTROSE 5%-WATER - 1,000 ML IV SCH (08:51)
[2024-01-03] MEDS: ASPIRIN 81 MG CHEWABLE TABLETS PO SCH (09:42)
[2024-01-03 11:14] LABS: EPI CELLS 6 /uL (0-25.1); HYALINE CASTS 0 /uL (0-3.1); PH,URINE 7.5 (5.0-8.0); URINE APPEARANCE CLEAR; URINE BACTERIA 12 /uL (0-1359); URINE BILIRUBIN NEGATIVE (NEGATIVE); URINE COLOR YELLOW; URINE GLUCOSE (UA) NEGATIVE (NEGATIVE); URINE KETONE NEGATIVE (NEGATIVE); URINE LEUK ESTERASE TRACE (NEGATIVE); URINE NITRITE NEGATIVE (NEGATIVE); URINE PROTEIN NEGATIVE (NEGATIVE); URINE RBC 319 /uL (0-23.9); URINE WBC 28 /uL (0-25.8)
[2024-01-03] MEDS: ACETYLCYSTEINE 20% 200MG/ML 4 ML VIAL *FOR ORAL / INH USE ONLY NEB SCH (11:50)
[2024-01-03] MEDS: PIPERACILLIN/TAZOB 3.375 GM 3.375 GM in DEXTROSE 5%-WATER - 50 ML IVPB SCH ×3 (11:58→17:32)
[2024-01-03] MEDS: NYSTATIN 500,000 UNITS/5 ML SUSPENSION PO SCH (14:13)
[2024-01-03] MEDS: ACETAMINOPHEN 1000 MG/100 ML BAG IVPB PRN (14:25)
[2024-01-03] MEDS: IBUPROFEN 800 MG/8 ML IJ IVPB ONE (17:15)
[2024-01-03 18:02] LABS: POTASSIUM 3.7 mmol/L (3.5-5.1)
[2024-01-03 18:03] LABS: CALCIUM 8.2 mg/dL (8.5-10.1)
[2024-01-03 18:04] LABS: BLOOD UREA NITROGEN 31.1 mg/dL (7-18)
[2024-01-03 18:07] LABS: CREATININE 0.9 mg/dL (0.55-1.3)
[2024-01-04 06:17] LABS: HEMOGLOBIN 12.6 GM/dL (11.7-16.9); MCH 28.3 pg (25.7-33.7); MCHC 31.5 g/dl (32.0-35.9); MEAN CELL VOLUME 89.7 fl (80-96); MEAN PLT VOLUME 8.8 fl (7.5-11.1); PLATELET COUNT 121 10^3/uL (134-434); RBC 4.46 M/mm3 (4.00-5.60); RDW 17.1 % (11.9-15.9); WHITE BLOOD COUNT 6.5 K/mm3 (4.0-10.0)
[2024-01-04 06:29] LABS: POTASSIUM 3.3 mmol/L (3.5-5.1)
[2024-01-04 06:34] LABS: CALCIUM 7.9 mg/dL (8.5-10.1)
[2024-01-04 06:35] LABS: ALBUMIN 2.5 g/dl (3.4-5.0); BLOOD UREA NITROGEN 26.4 mg/dL (7-18); MAGNESIUM 2.2 mg/dL (1.8-2.4)
[2024-01-04 06:37] LABS: CREATININE 0.9 mg/dL (0.55-1.3)
[2024-01-04 06:38] LABS: BILIRUBIN,TOTAL 1.4 mg/dL (0.2-1); PHOSPHOROUS 2.7 mg/dL (2.5-4.9); TOT PROT 5.9 g/dl (6.4-8.2)
[2024-01-04] MEDS ORDERED: ACETYLCYSTEINE 20% 200MG/ML 4 ML VIAL *FOR ORAL / INH USE ONLY NEB SCH (09:37)
[2024-01-04] MEDS: DEXTROSE 5%-WATER - 1,000 ML IV SCH ×2 (11:30→16:53)
[2024-01-04 15:27] VITALS: BMI 47.0
[2024-01-04] MEDS: KCL 10 MEQ IVPB 10 MEQ/100 ML INFUS.BAG IVPB SCH (16:58)
[2024-01-05 07:51] LABS: POTASSIUM 3.1 mmol/L (3.5-5.1)
[2024-01-05 07:57] LABS: CALCIUM 8.2 mg/dL (8.5-10.1)
[2024-01-05 07:59] LABS: ALBUMIN 2.5 g/dl (3.4-5.0); BLOOD UREA NITROGEN 17.7 mg/dL (7-18); MAGNESIUM 2.2 mg/dL (1.8-2.4)
[2024-01-05 08:01] LABS: CREATININE 0.8 mg/dL (0.55-1.3)
[2024-01-05 08:04] LABS: TOT PROT 5.8 g/dl (6.4-8.2)
[2024-01-05] MEDS: DEXTROSE 5%-WATER - 1,000 ML IV SCH (11:18)
[2024-01-05] MEDS: POTASSIUM CHLORIDE ORAL LIQUID 20 MEQ/15 ML PO ONE (11:19)
[2024-01-05] MEDS: KCL 10 MEQ IVPB 10 MEQ/100 ML INFUS.BAG IVPB SCH (11:20)
[2024-01-06 07:04] LABS: POTASSIUM 3.6 mmol/L (3.5-5.1)
[2024-01-06 07:06] LABS: CALCIUM 8.3 mg/dL (8.5-10.1)
[2024-01-06 07:07] LABS: ALBUMIN 2.5 g/dl (3.4-5.0); BLOOD UREA NITROGEN 17.3 mg/dL (7-18)
[2024-01-06 07:10] LABS: CREATININE 0.8 mg/dL (0.55-1.3)
[2024-01-06 07:12] LABS: TOT PROT 5.8 g/dl (6.4-8.2)
[2024-01-06] MEDS ORDERED: ARTIFICIAL TEARS OPHTHALMIC DROPS OU PRN ×2 (12:25→19:36)
[2024-01-06] MEDS: ALBUTEROL SO4 0.083% IH SOL 2.5 MG/3 ML VIAL.NEB. NEB SCH (20:35)
[2024-01-06] MEDS: hydrALAZINE HCL 50 MG TABLET (FP) NGT SCH (21:27)
[2024-01-06] MEDS: LACTULOSE 20 GM/30 ML UDC (FOR ORAL USE ONLY) PO SCH (21:27)
[2024-01-06] MEDS: ENOXAPARIN NA (PORCINE) 40 MG/0.4 ML DISP.SYRIN SQ SCH (21:27)
[2024-01-06] MEDS: LABETALOL HCL 100 MG TABLET (FP) NGT SCH (21:27)
[2024-01-06] MEDS: ATORVASTATIN CA 10 MG TABLET (FP) NGT SCH (21:28)
[2024-01-06] MEDS: INSULIN ASPART SLIDING SCALE (NOVOLOG) 1 VIAL SQ SCH (21:33)
[2024-01-06] MEDS ORDERED: CHLORHEXIDINE GLUCONATE 4% CLEANSER FOR DECOLONIZATION TP SCH (22:00)
[2024-01-07] MEDS: ACETAMINOPHEN 1000 MG/100 ML BAG IVPB PRN (02:02)
[2024-01-07] MEDS: FUROSEMIDE 40 MG TABLET (FP) PO SCH (05:31)
[2024-01-07] MEDS: TAMSULOSIN HCL 0.4 MG CAP PO SCH (09:06)
[2024-01-07] MEDS: PANTOPRAZOLE 40 MG TABLET PO SCH (09:06)
[2024-01-07] MEDS: ASPIRIN 81 MG CHEWABLE TABLETS PO SCH (09:06)
[2024-01-07] MEDS: SACUBITRIL/VALSARTAN 49 MG-51 MG TABLET PEG SCH (09:06)
[2024-01-07] MEDS ORDERED: PANTOPRAZOLE 40 MG TABLET PO SCH (10:00)
[2024-01-07 10:20] LABS: HEMATOCRIT 39.8 % (35.4-49); HEMOGLOBIN 12.3 GM/dL (11.7-16.9); MCH 27.8 pg (25.7-33.7); MCHC 30.9 g/dl (32.0-35.9); MEAN CELL VOLUME 89.9 fl (80-96); MEAN PLT VOLUME 9.7 fl (7.5-11.1); PLATELET COUNT 129 10^3/uL (134-434); RBC 4.43 M/mm3 (4.00-5.60); RDW 16.8 % (11.9-15.9)
[2024-01-07 10:47] LABS: POTASSIUM 3.1 mmol/L (3.5-5.1)
[2024-01-07 10:54] LABS: ALBUMIN 2.6 g/dl (3.4-5.0); BLOOD UREA NITROGEN 12.6 mg/dL (7-18); CALCIUM 8.3 mg/dL (8.5-10.1); MAGNESIUM 1.8 mg/dL (1.8-2.4)
[2024-01-07 10:55] LABS: CREATININE 0.7 mg/dL (0.55-1.3)
[2024-01-07 10:56] LABS: BILIRUBIN,TOTAL 0.8 mg/dL (0.2-1); TOT PROT 5.8 g/dl (6.4-8.2)
[2024-01-08] MEDS: POTASSIUM CHLORIDE TABS 10 MEQ TABLET.ER (FP) PO ONE (14:01)
[2024-01-08] MEDS: POTASSIUM CHLORIDE ORAL LIQUID 20 MEQ/15 ML PO ONE (15:33)
[2024-01-09 09:14] LABS: HEMATOCRIT 38.5 % (35.4-49); MCH 27.8 pg (25.7-33.7); MCHC 31.2 g/dl (32.0-35.9); MEAN PLT VOLUME 9.4 fl (7.5-11.1); PLATELET COUNT 148 10^3/uL (134-434); RBC 4.32 M/mm3 (4.00-5.60); RDW 16.8 % (11.9-15.9); WHITE BLOOD COUNT 8.9 K/mm3 (4.0-10.0)
[2024-01-09 09:40] LABS: POTASSIUM 3.6 mmol/L (3.5-5.1)
[2024-01-09 09:43] LABS: ALBUMIN 2.7 g/dl (3.4-5.0); BLOOD UREA NITROGEN 9.6 mg/dL (7-18); CALCIUM 8.3 mg/dL (8.5-10.1); MAGNESIUM 1.9 mg/dL (1.8-2.4)
[2024-01-09 09:46] LABS: CREATININE 0.6 mg/dL (0.55-1.3)
[2024-01-09 09:48] LABS: BILIRUBIN,TOTAL 0.6 mg/dL (0.2-1); TOT PROT 5.8 g/dl (6.4-8.2)
[2024-01-09] MEDS: METOPROLOL TARTRATE 50 MG TABLET (FP) PO SCH (21:09)
[2024-01-09] MEDS: APIXABAN 5 MG TABLET PO SCH (21:10)
[2024-01-09] MEDS ORDERED: ARTIFICIAL TEARS OPHTHALMIC DROPS OU PRN (23:35)
[2024-01-10] MEDS: METOPROLOL TARTRATE 5 MG/5 ML VIAL IVPUSH PRN (05:37)
[2024-01-10] MEDS: LACTULOSE 20 GM/30 ML UDC (FOR ORAL USE ONLY) PO SCH (06:43)
[2024-01-10] MEDS: PANTOPRAZOLE 40 MG TABLET PO SCH (06:43)
[2024-01-10] MEDS: INSULIN ASPART SLIDING SCALE (NOVOLOG) 1 VIAL SQ SCH (06:55)
[2024-01-10] MEDS: ALBUTEROL SO4 0.083% IH SOL 2.5 MG/3 ML VIAL.NEB. NEB SCH (07:30)
[2024-01-10 08:39] LABS: HEMATOCRIT 38.1 % (35.4-49); HEMOGLOBIN 12.3 GM/dL (11.7-16.9); MCH 28.4 pg (25.7-33.7); MCHC 32.3 g/dl (32.0-35.9); MEAN PLT VOLUME 9.3 fl (7.5-11.1); PLATELET COUNT 167 10^3/uL (134-434); RBC 4.34 M/mm3 (4.00-5.60); RDW 17.3 % (11.9-15.9); WHITE BLOOD COUNT 8.1 K/mm3 (4.0-10.0)
[2024-01-10 08:51] LABS: POTASSIUM 3.8 mmol/L (3.5-5.1)
[2024-01-10 08:59] LABS: CALCIUM 8.8 mg/dL (8.5-10.1)
[2024-01-10 09:00] LABS: ALBUMIN 2.8 g/dl (3.4-5.0); BLOOD UREA NITROGEN 9.9 mg/dL (7-18)
[2024-01-10 09:04] LABS: BILIRUBIN,TOTAL 0.7 mg/dL (0.2-1); CREATININE 0.5 mg/dL (0.55-1.3)
[2024-01-10] MEDS: SACUBITRIL/VALSARTAN 49 MG-51 MG TABLET PEG SCH (09:22)
[2024-01-10] MEDS: TAMSULOSIN HCL 0.4 MG CAP PO SCH (09:22)
[2024-01-10] MEDS: ASPIRIN 81 MG CHEWABLE TABLETS PO SCH (09:23)
[2024-01-10] MEDS: ENOXAPARIN NA (PORCINE) 40 MG/0.4 ML DISP.SYRIN SQ SCH (09:23)
[2024-01-10] MEDS: METOPROLOL TARTRATE 50 MG TABLET (FP) PO SCH ×2 (09:23→21:21)
[2024-01-10] MEDS ORDERED: METOPROLOL TARTRATE 50 MG TABLET (FP) PO SCH (10:00)
[2024-01-10] MEDS: amLODIPine BESYLATE 5 MG TABLET (FP) PO SCH (13:23)
[2024-01-10] MEDS: ATORVASTATIN CA 10 MG TABLET (FP) NGT SCH (21:21)
[2024-01-11] MEDS: hydrALAZINE HCL 25 MG TABLET (FP) PO SCH (10:03)
[2024-01-11] MEDS: amLODIPine BESYLATE 10 MG TABLET (FP) PO SCH (10:03)
[2024-01-11] MEDS: METOPROLOL TARTRATE 50 MG TABLET (FP) PO ONE (12:54)
[2024-01-11] MEDS: METOPROLOL TARTRATE 50 MG TABLET (FP) PO SCH (21:21)
[2024-01-12] MEDS: ACETAMINOPHEN 1000 MG/100 ML BAG IVPB PRN (01:45)
[2024-01-12] MEDS: METOPROLOL TARTRATE 50 MG TABLET (FP) PO SCH (10:03)
[2024-01-13] MEDS ORDERED: ALBUTEROL SO4 0.083% IH SOL 2.5 MG/3 ML VIAL.NEB. NEB PRN (13:21)
[2024-01-15 16:13] VITALS: BP 139/94; PULSE 94; RESP 20; TEMP 98.8
== END 2024-01-15 05:50 | DRG 207 ==
LOC: JER 11:37 → JERBED 12:28 → JICU 14:17 → J2W 01-04 14:01 → J5S 01-06 16:37 → J4W 01-09 23:06
PROVIDERS: ADMIT Internal Medicine Pulmonary Disease; ATTEND Family Medicine
PROC: 5A1955Z Respiratory Ventilation, Greater than 96 Consecutive Hours (ICD-10-PCS; principal; 2023-12-28)
PROC: 0BH17EZ Insertion of Endotracheal Airway into Trachea, Via Natural or Artificial Opening (ICD-10-PCS; 2023-12-28)
DX: J96.02 Acute respiratory failure with hypercapnia (principal); J18.9 Pneumonia, unspecified organism; G92.8 Other toxic encephalopathy; I50.33 Acute on chronic diastolic (congestive) heart failure; J98.11 Atelectasis; Z68.41 Body mass index [BMI] 40.0-44.9, adult; E87.29 Other acidosis; E87.3 Alkalosis; E87.0 Hyperosmolality and hypernatremia; E11.9 Type 2 diabetes mellitus without complications; E66.01 Morbid (severe) obesity due to excess calories; I11.0 Hypertensive heart disease with heart failure; J96.01 Acute respiratory failure with hypoxia; I48.91 Unspecified atrial fibrillation
CPT/HCPCS: 0241U-QW; 36415; 36600; 70450-TC; 71045-TC-FY; 71250-TC; 80048; 80053; 80307; 81003; 82140; 82550; 82803; 82962; 83605; 83735; 84100; 84436; 84443; 84484; 85025; 85027; 85610; 85730; 86140; 86850; 86900; 86901; 87040; 87070; 87081; 87086; 87205; 87635; 87899; 93005; 93010; 94002; 94640; 94660; 97116-GP; 97161-GP; 99291; J0131